=== PATIENT | male | born 1960 | race Caucasian/White ===

== ENCOUNTER 2021-10-20 21:12 | Emergency (ER) | payer MEDICARE, OTHER ==
[~2021-10-20] VITALS: Ht 177.8 cm; Wt 96.3 kg
[2021-10-20 21:18] VITALS: BP 135/91
== END 2021-10-20 23:52 | disposition home or self-care (01) ==
LOC: ER 21:13
DX: S81.811A Laceration without foreign body, right lower leg, initial encounter (principal); Z87.891 Personal history of nicotine dependence; X58.XXXA Exposure to other specified factors, initial encounter; Y93.89 Activity, other specified; Y92.89 Other specified places as the place of occurrence of the external cause; Y99.8 Other external cause status
CPT/HCPCS: 12002; 99282